=== PATIENT | female | born 1940 | race Caucasian/White ===

== ENCOUNTER → 2022-01-11 09:09 | Outpatient (CLI) | payer OTHER, SELFPAY ==
--- NOTE | 2022-01-11 | DI.US.S_ITS ---
LIMITED ULTRASOUND OF LEFT BREAST AND AXILLA: 01/11/2022 CLINICAL: Left mass. Comparison is made to exam dated: 01/11/2022 mammogram - [facility]. Color flow and real-time ultrasound of the left breast 3 o'clock, and axilla regions were performed. Reaves scale images of the real-time examination were reviewed. There is a benign 0.6 cm normal lymph node in the left breast at 3 o'clock posterior depth. This correlates as palpated region. No significant abnormalities were seen sonographically in the left breast or the left axilla. IMPRESSION: BENIGN There is no sonographic evidence of malignancy. The 0.6 cm normal lymph node in the left breast is benign. There is no significant abnormality seen in the left axilla to correspond with the area of clinical concern and palpable abnormality, however, recommend clinical follow up for persistent or worsening symptoms, or development of any clinically suspicious findings. A 1 year screening left mammogram is recommended. Please see report for right breast ultrasound and recommendations for ultrasound guided biopsy. This exam was interpreted at Station ID: [id number]. Electronically Signed By: Kishan aguirre,[facility] [place]/:01/15/2022 12:36:54 Entry: - 01/15/2022 14:44:57 Ultrasound BI-RADS: 2 Benign
--- NOTE | 2022-01-11 | DI.US.S_ITS ---
LIMITED ULTRASOUND OF RIGHT BREAST AND AXILLA: 01/11/2022 CLINICAL: Abnormal mammogram. Comparison is made to exam dated: 01/11/2022 mammogram - [facility]. Color flow and real-time ultrasound of the right breast 6 o'clock, and axilla regions were performed. Reaves scale images of the real-time examination were reviewed. There is a 1.3 cm x 1.1 cm x 0.9 cm irregular mass with an indistinct margin in the right breast at 6 o'clock middle depth 5 cm from the nipple. This irregular mass is hypoechoic with posterior acoustic shadowing. This correlates with mammography findings. No significant abnormalities were seen sonographically in the right axilla. IMPRESSION: SUSPICIOUS OF MALIGNANCY The 1.3 cm x 1.1 cm x 0.9 cm irregular mass in the right breast is suspicious of malignancy. An ultrasound guided biopsy is recommended. This exam was interpreted at Station ID: [id number]. Electronically Signed By: Kishan aguirre,[facility] [place]/:01/15/2022 12:27:42 letter sent: Biopsy Required Ultrasound BI-RADS: 4 Suspicious for malignancy
--- NOTE | 2022-01-11 | DI.MG.S_ITS ---
BILATERAL DIGITAL DIAGNOSTIC MAMMOGRAM 3D/2D: 01/11/2022 CLINICAL: Left axillary mass. Patient reports that she cannot currently feel it and there is no pain. Comparison: [facility] 07/12/2011 The tissue of both breasts is predominantly fatty. There is a new 1.2 cm oval equal density focal asymmetry in the right breast at 6 o'clock middle depth. No other significant masses, calcifications, or other findings are seen in either breast. IMPRESSION: INCOMPLETE: NEEDS ADDITIONAL IMAGING EVALUATION The new 1.2 cm oval equal density focal asymmetry in the right breast resembles fibroglandular tissue and is indeterminate. -A targeted ultrasound is recommended and will immediately follow. There is no abnormality seen in the left axilla to correspond with the area of clinical concern, palpable abnormality, and pain in the left axilla. -A targeted ultrasound is recommended and will immediately follow. This exam was interpreted at Station ID: [id number]. NOTE: For mammograms, a report in lay terms will be sent to the patient. Approximately 15% of breast malignancies will not be visualized mammographically. In the management of a palpable breast mass, a negative mammogram must not discourage biopsy of a clinically suspicious lesion. Electronically Signed By: Kishan aguirre,[facility] [place]/:01/15/2022 12:24:24 ACR BI-RADS Category 0: Incomplete [id number]
== END ==
PROVIDERS: PCP Registered Nurse; Referring Provider Emergency Medicine; Visit Provider Emergency Medicine
DX: R92.8 Other abnormal and inconclusive findings on diagnostic imaging of breast (principal); N63.15 Unspecified lump in the right breast, overlapping quadrants; R59.0 Localized enlarged lymph nodes
CPT/HCPCS: 76642; 77066; G0279